=== PATIENT | female | born 2000 | race Caucasian/White ===

== ENCOUNTER 2021-02-26 18:11 | Emergency (ER) | payer OTHER, SELFPAY ==
[2021-02-26] MEDS ORDERED: Ibuprofen 200 MG TAB ONE (18:33)
[2021-02-26 18:56] LABS: #Basophils 0.1 10x3/uL (0.0-0.2); %Basophils 0.4 % (0.0-2.0); %Eosinophils 0.1 % (0.0-6.0); %Monocytes 8.4 % (0.0-10.0); %Neutrophils 76.6 % (40.0-75.0); Hemoglobin 14.5 g/dL (12.0-15.5); Mean Corpuscular HGB CONC 33.9 g/dL (32.0-36.0); Mean Corpuscular Hemoglobin 29.9 pg (27.0-33.0); Mean Corpuscular Volume 88.2 fl (81.6-98.3); Mean Platelet Volume 9.7 fl (7.4-10.4); Platelet Count 218 10x3/uL (150-450); RBC Distribution Width 12.3 % (11.5-14.5); Red Blood Cell (RBC) Count 4.85 10x6/uL (3.90-5.03); White Blood Cell (WBC) Count 11.7 10x3/uL (3.5-10.5)
[2021-02-26 19:10] LABS: ALT (SGPT) 9 U/L (8-55); AST (SGOT) 21 U/L (5-34); Albumin 4.5 g/dL (3.5-5.0); Alkaline Phosphatase 65 U/L (40-100); Anion Gap 16 mmol/L (10-20); BUN (Urea Nitrogen) 10 mg/dL (7.0-18.7); Bilirubin, Total 0.5 mg/dL (0.2-1.2); Calc. Creatinine Clearance 0 mL/min (70-130); Calcium 9.5 mg/dL (7.8-10.44); Carbon Dioxide 22 mmol/L (22-29); Chloride 103 mmol/L (98-107); Globulin 3.4 g/dL (2.4-3.5); Glucose 95 mg/dL (70-105); Protein, Total 7.9 g/dL (6.0-8.3); Sodium 137 mmol/L (136-145)
[2021-02-26] MEDS ORDERED: Ondansetron PF 4 MG/2 ML Vial ONE (20:34)
[2021-02-26] MEDS ORDERED: cefTRIAXone\\ROCEPHIN 1 GM VIAL ONE (20:34)
[2021-02-26 21:10] LABS: Bilirubin Neg (Negative); Blood, Urine 50 (Negative); Clarity Clear (Clear); Glucose, Urine (Dipstick) Normal (Negative); Ketone, Urine 15 mg/dL (Negative); Leukocyte 100 (Negative); Nitrite Negative (Negative); Protein, Urine (Dipstick) Negative (Neg-Trace); Urobilinogen Normal mg/dL (Less than 2)
[2021-02-26 21:13] LABS: Pregnancy Test - Urine (BHCG) Negative (Negative); Pregu Control Background? CLEAR/WHITE (CLR/WHITE); Pregu Control Bar Appear? YES (CONTROL BAR)
[2021-02-26 21:26] LABS: Bacteria/HPF 1+ HPF (None Seen); Mucous/LPF 1+ LPF (<2+); RBC/HPF 0-3 HPF (0-3); Squamous Epithelial 0-3 HPF (0-3)
== END 2021-02-26 22:43 | disposition home or self-care (01) ==
LOC: CSHERS 18:11
DX: B34.9 Viral infection, unspecified (principal)
CPT/HCPCS: 71045; 80053; 81003; 81015; 81025; 83605; 85025; 87040; 96365; 96375; J0696; J2405